=== PATIENT | female | born 1965 | race Caucasian/White ===

== ENCOUNTER 2018-03-26 17:13 | Emergency (ER) | payer OTHER ==
[~2018-03-26] VITALS: Ht 167.6 cm; Wt 77.1 kg
--- NOTE | 2018-03-26 17:20 | NUR ---
BBPA FROM [facility]: MEDICAL CLEARANCE, C/O HEADACHE. A/OX 4. BREATHING EVEN AND UNLABORED. NO SOB, NAD, VITALS STABLE. SAFETY AND COMFORT MEASURES IN PLACE. AWAITING MD ORDERS.
--- NOTE | 2018-03-26 17:36 | NUR ---
LAB AT BEDSIDE FOR BLOOD COLLECTION/ TESTING.
[2018-03-26 17:55] LABS: BASOPHILS # (AUTO) 0.1 /CMM (0.0-0.2); BASOPHILS % (AUTO) 1.6 % (0.0-2.0); EOSINOPHILS % (AUTO) 0.8 % (0.0-6.0); HEMATOCRIT 40 % (33-45); HEMOGLOBIN 13.4 g/dL (11.5-14.8); LYMPHOCYTES # (AUTO) 1.8 /CMM (0.8-4.8); LYMPHOCYTES % (AUTO) 21.8 % (20.0-44.0); MEAN CORPUSCULAR HGB CONC 34 g/dl (31.0-36.0); MEAN CORPUSCULAR VOLUME 90 fL (82-100); MONOCYTES # (AUTO) 0.5 /CMM (0.1-1.30); MONOCYTES % (AUTO) 5.9 % (2.0-12.0); NEUTROPHILS # (AUTO) 5.8 /CMM (1.8-8.9); NEUTROPHILS % (AUTO) 69.9 % (43.0-81.0); PLATELET COUNT (AUTO) 313 /CMM (150-450); RDW COEFFICIENT OF VARIATION 12.8 (11.5-15.0); RED BLOOD CELL COUNT(AUTO) 4.39 MIL/uL (4.0-5.2); WHITE BLOOD COUNT (AUTO) 8.3 K/uL (4.3-11.0)
[2018-03-26 18:06] LABS: CALCIUM, SERUM 9.5 mg/dL (8.5-10.1); CARBON DIOXIDE 30 mmol/L (21-32); CHLORIDE 103 mmol/L (98-107); CREATININE 0.9 mg/dL (0.6-1.3); GLUCOSE 112 mg/dL (74-106); POTASSIUM 4.8 mmol/L (3.5-5.1); SODIUM SERUM 139 mmol/L (136-145); UREA NITROGEN, BLOOD 18 mg/dL (7-18)
[2018-03-26 18:12] LABS: ACETAMINOPHEN 0 ug/ml (10-30); ALANINE AMINOTRANSFERASE 18 U/L (12-78); ALBUMIN 3.8 g/dL (3.4-5.0); ALCOHOL, BLOOD < 3 mg/dL (0-0); ALKALINE PHOSPHATASE 84 U/L (46-116); ASPARTATE AMINOTRANSFERASE 13 U/L (15-37); BILIRUBIN,DIRECT 0.1 mg/dL (0.0-0.2); BILIRUBIN,TOTAL 0.3 mg/dL (0.2-1.0); SALICYLATE 4.3 mg/dL (2.8-20.0); TOTAL PROTEIN, SERUM 7.4 g/dL (6.4-8.2)
--- NOTE | 2018-03-26 18:13 | NUR ---
Lolita mac in [facility] - 03/26/18 at 1850 by [facility] LAB AT BEDSIDE FOR BLOOD TESTING.
--- NOTE | 2018-03-26 19:04 | NUR ---
PT STABLE CONDITION. VSS. ENDORSED TO RN HOV.
[2018-03-26 19:11] LABS: APPEARANCE,URINE Clear (CLEAR); BILIRUBIN,URINE Negative (NEGATIVE); BLOOD, URINE Negative Ery/uL (NEGATIVE); COLOR,URINE Yellow (YELLOW); KETONES,URINE Negative (NEGATIVE); LEUKOCYTE ESTERASE ,URINE Negative (NEGATIVE); NITRITE, URINE Negative (NEGATIVE); PROTEIN,URINE Negative (NEGATIVE); UGLUCOSE Negative (NEGATIVE); UROBILINOGEN,URINE 0.2 EU/dL (0.2)
--- NOTE | 2018-03-26 19:13 | NUR ---
RECEIVED REPORT FROM CHIKI SOLANO AND CHIKI PERAZA FOR DONELL.
--- NOTE | 2018-03-26 19:51 | NUR ---
CALLED [facility] AND WAS GIVEN A 1 HOUR ETA
--- NOTE | 2018-03-26 22:01 | NUR ---
Patient is resting comfortably in bed with eyes closed. Easily aroused. VSS
--- NOTE | 2018-03-26 22:53 | NUR ---
Patient is resting comfortably in bed with eyes closed. Easily aroused. VSS
--- NOTE | 2018-03-26 23:42 | NUR ---
SO CALL ROLY BENITEZ [phone] FAX [phone]
--- NOTE | 2018-03-27 01:00 | NUR ---
VAIBHAV GATES BEDSIDE SPEAKING WITH PT
--- NOTE | 2018-03-27 05:36 | NUR ---
Patient is resting comfortably in bed with eyes closed. Easily aroused. VSS. No S/S of discomfort noted. Will continue to monitor pt.
--- NOTE | 2018-03-27 06:28 | NUR ---
Patient is resting comfortably in bed with eyes closed. Easily aroused. VSS
--- NOTE | 2018-03-27 08:17 | NUR ---
yarn worker received a voicemail message from director Delmi Rowe requesting assistance in placing pt. in a psychiatric hospital since pt. is placed on a 5150 hold. MARTI called [facility] and spoke to Clair in intake who informed they have female beds available at this time. MARTI contacted [facility] and spoke to Shavon in intake who informed they have no beds available today. MARTI contacted [facility] and was informed by intake that they spoke with Jenn and they will assist if they have any beds available. MARTI faxed clinicals to intake at [facility] .
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
--- NOTE | 2018-03-27 11:44 | NUR ---
PAGED [facility].
--- NOTE | 2018-03-27 13:19 | NUR ---
SEEN BY BUD MONET,DRILLER MULTIPLE SPINDLE, WAITING FOR DR TORRES FOR EVAL
--- NOTE | 2018-03-27 13:26 | NUR ---
CALL FROM HILARIO, WAITING ON [facility] TO ACCEPT PT Addendum: 03/27/18 at 1501 by CHANDLER CALL FROM HILARIO, WAITING ON [facility] TO BE ACCEPTED
--- NOTE | 2018-03-27 13:26 | NUR ---
MARTI contacted [facility] and spoke to Chela in intake to get an update on bed availibility. Chela informed they will have beds available and to contact her in an hour. MARTI updated ER CRN Gener.
--- NOTE | 2018-03-27 13:40 | NUR ---
CALL RECEIVED FROM HILARIO CALLE,ACCEPTED BY MIGDALIA MONET AT [facility],REPORT TO BE CALLED AT [phone]
--- NOTE | 2018-03-27 14:00 | NUR ---
PT NOTED DEMANDED TO BE SEEN BY THE MD RIGHT AWAY IN A VERY LOUD VOICE IN THE HALLWAY. SAFELY ASSISTED BACK TO BED BUT REFUSES TO TALK ANYMORE WHEN ASKED.
[2018-03-27] MEDS ORDERED: OLANZAPINE 10 MG VIAL IM ONE ×2 (14:35→15:00)
--- NOTE | 2018-03-27 14:36 | NUR ---
MARTI contacted [facility] and spoke to Chela who informed MARTI they accepted the patient and to have the RN call in for a report to . MARTI called ED CRN Brianda and updated him with the following information and requested for pt' RN to call in a report to the aforementioned phone number.
--- NOTE | 2018-03-27 14:39 | NUR ---
SUDDENLY,PATIENT BECAME BELIGERENT,UNCOOPERATIVE, SCREAMING AT THE TOP OF HER VOICE, RE-ORIENTATION ATTEMPTED AND ASKED WHAT SHE NEEDED TO CALM HER DOWN BUT PATIENT REFUSED TO COOPERATE. DR CARRENO ORDERED CODE LOYA AND MEDICATED ORDERED. PLACED ON ELEVATOR MECHANIC,SITTER AT BEDSIDE
[2018-03-27] MEDS ORDERED: BENZ1TAB7 PO (15:19)
[2018-03-27] MEDS ORDERED: ZOLP5TAB2 PO (15:19)
[2018-03-27] MEDS ORDERED: DIVA500T4 PO (15:19)
[2018-03-27] MEDS ORDERED: BUSP10TA35 PO (15:19)
--- NOTE | 2018-03-27 15:30 | NUR ---
REQUESTED [facility] FOR TRANSPORT TO [facility], ETA [phone]
--- NOTE | 2018-03-27 16:10 | NUR ---
REPORT GIVEN TO MIGDALIA MONET AT [facility].
--- NOTE | 2018-03-27 16:30 | NUR ---
RESQUEDELED [facility] PICKUP FOR 1800
[2018-03-27 17:50] VITALS: BP 144/88
== END 2018-03-27 18:07 ==
LOC: ER 17:17
DX: R45.851 Suicidal ideations (principal); R51 Headache; F15.10 Other stimulant abuse, uncomplicated; F31.9 Bipolar disorder, unspecified; F20.9 Schizophrenia, unspecified; Z60.2 Problems related to living alone
CPT/HCPCS: 36415; 70450; 80048; 80076; 80305; 80329; 81001; 85025; 96372; 99285; A4606 ×2; G0480 ×2; J3490; Z7610 ×2; 81000-TC